=== PATIENT | female | born 1940 | race Caucasian/White ===

== ENCOUNTER → 2020-12-02 | Outpatient (CLI) | payer MEDICARE | LOC: LAB SHORT 14:37 → LAB 14:37 | DX: D48.5 Neoplasm of uncertain behavior of skin (principal); C44.1122 Basal cell carcinoma of skin of right lower eyelid, including canthus | CPT/HCPCS: 88305 ==

== ENCOUNTER → 2021-05-13 | Outpatient (CLI) | payer MEDICARE | END | disposition home or self-care (01) | LOC: LAB SHORT 16:44 | DX: L08.9 Local infection of the skin and subcutaneous tissue, unspecified (principal) | CPT/HCPCS: 87070; 87077; 87186; 87205 ==

== ENCOUNTER → 2023-04-17 | Outpatient (CLI) | payer MEDICARE | LOC: LAB SHORT 13:32 → LAB 13:32 | DX: L08.9 Local infection of the skin and subcutaneous tissue, unspecified (principal) | CPT/HCPCS: 87070; 87077; 87147; 87186; 87205 ==

== ENCOUNTER → 2023-08-03 | Outpatient (CLI) | payer MEDICARE ==
[2023-08-03 19:43] LABS: Microalb/Creat Ratio UR, Rand 24.804 mg/g (0.000-30.000); Microalbumin, Random Urine 25.3 mg/L (0.000-20.000)
== END | disposition home or self-care (01) ==
LOC: LAB SHORT 17:24 → LAB EV 17:24
PROVIDERS: Family Medicine
DX: I10 Essential (primary) hypertension (principal); R73.01 Impaired fasting glucose
CPT/HCPCS: 82043; 82570; 83036